=== PATIENT | female | born 1970 | race Caucasian/White ===

== ENCOUNTER → 2017-11-17 | Day surgery (SDC) | payer OTHER ==
--- NOTE | 2017-11-16 16:42 | History & Physical Pre-Op ---
General Information and HPI History of Present Illness: Chantal is a 47-year-old female with a long-standing and worsening complaint of pain to both the left and right heels. The patient also complains of painful neuromas left and right foot. The patient has undergone an extended course of conservative care, including shoe gear and activity modification, rest, immobilization course of NSAIDs. None of this is yielded her any significant relief. The patient presents today for preoperative surgical consultation. Office from Tommie Brunner DPM. Allergies/Medications Allergies: Coded Allergies: No Known Allergies (11/11/17) Home Med list Atorvastatin Calcium (Lipitor) 10 MG TABLET 1 TAB PO EOD CHOLESTEROL ( Reported) Biotin 5,000 MCG TAB.SUBL 1 TAB PO DAILY SUPPLEMENT (Reported) Bupropion HCl (Bupropion XL) 300 MG TAB.ER.24H 1 TAB PO QAM MENTAL HEALTH/ SMOKING CESSATIO (Reported) Cholecalciferol (Vitamin D3) (Vitamin D3) 10,000 UNIT CAPSULE 1 CAP PO DAILY SUPPLEMENT (Reported) Cyanocobalamin (Vitamin B-12) 1,000 MCG TABLET 1 TAB PO DAILY SUPPLEMENT ( Reported) Levothyroxine Sodium (Levo-T) 125 MCG TABLET 1 TAB PO DAILY THYROID (Reported ) Meloxicam 15 MG TABLET 1 TAB PO DAILY PRN PAIN/INFLAMMATION (Reported) Milk Thistle 500 MG CAPSULE 4 CAP PO DAILY SUPPLEMENT (Reported) Mometasone Furoate (Nasonex) 50 MCG SPRAY.PUMP 1 SPRAY NASB DAILY PRN ALLERGIES (Reported) Montelukast Sodium 10 MG TABLET 1 TAB PO DAILY ALLERGIES (Reported) Oxycodone HCl/Acetaminophen (Percocet 5-325 MG Tablet) 5 MG-325 MG TABLET 1 TAB PO Q6H PRN PAIN (Reported) [POTASSIUM CHLOR W/IO] 1 CAP PO DAILY SUPPLEMENT (Reported) Venlafaxine HCl (Venlafaxine HCl ER) 75 MG CAP.ER.24H 1 CAP PO DAILY MENTAL HEALTH (Reported) Zinc Picolinate (Unknown Strength) POWDER (Unknown Dose) PO DAILY SUPPLEMENT (Reported) Past History Medical History Respiratory: bronchitis Endocrine: Suzanne's thyroiditis Surgical History Pertinent Surgical History: appendectomy Review of Systems Review of Systems: Review of systems unremarkable except for that noted distally was Exam & Diagnostic Data Last 24 Hrs of Vital Signs/I&O Intake & Output 11/16 1600 11/16 0800 11/16 0000 Intake Total Output Total Balance Patient 170 lb Weight Physical Exam: Lungs clear bilaterally. Heart sounds rate and rhythm regular. Lower extremity physical exam demonstrates intact pedal pulses bilaterally. Pulses dorsalis pedis and posterior tibial arteries are palpable bilaterally. Patient without any sensory motor deficits. Deep tendon reflexes grossly intact. Patient noted estimated pain with palpation of plantar medial aspect of the left and right heels. Patient also noted to have same and pain with palpation to the third interspace left and right feet. Assessment/Plan Assessment/Plan: Painful heel spurs left and right and painful neuromas left and right. A lengthy discussion reviewing both surgical and conservative options was held the patient at bedside and the patient elects to go forward with surgery despite the risks. As Ranked By This Provider Problem List: 1. Plantar fascial fibromatosis Attending MD Review Statement Attending Statement Attending MD Statement: examined this patient
[~2017-11-17] VITALS: Ht 170.2 cm; Wt 77.1 kg
[~2017-11-17] MED LIST: BIOTIN5000 MC1 PO; BUPROPION XL300 M1 PO; LEVO-T125 MCG PO; LIPITOR10 M1 PO; MELOXICAM15 M1 PO; MILK THISTLE500 M1 PO; MONTELUKAST SOD10 M1 PO; NASONEX17 GM NASB; PERCOCET 5-3251 EACH PO; POTASSIUM CHLOR PO; VENLAFAXINE HCL75 M1 PO; VITAMIN B-121000 MC3 PO; VITAMIN D310000 UNI1 PO; ZINC PICOLINATE PO; [UNRECOGNIZED DRUG - OTHER] PO
--- NOTE | 2017-11-17 10:13 | Operative Report ---
Operative/Inv Procedure Report Surgery Date: 11/17/17 Name of Procedure: 1 plantar fasciotomy right foot 2 plantar fasciotomy left foot 3 excision of neuroma right 4 excision of neuroma left foot Pre-Operative Diagnosis: 1 plantar fasciitis right foot 2 plantar fasciitis left foot 3 neuroma right foot 4 neuroma left foot Post-Operative Diagnosis: The same Estimated Blood Loss: scant Surgeon/Solution Mixer: Cori MCRAE,Mikel Brunner DPM Anesthesia: moderate sedation, block Operative/Procedure Note Note: After obtaining informed consent the patient was brought to the operating room and placed on the operating table in the supine position. The patient isn't securely fastened to the operating table utilizing safety belt. After administration of IV sedation, 10 mL of 0.5% Marcaine plain was infiltrated about the patient's bilateral ankles. 2 well-padded ankle tourniquet was placed about the patient's bilateral lower extremities. 2 g of Ancef were delivered intravenously times one dose. Left right feet were then scrubbed prepped and draped in usual aseptic manner. The right lower extremity is elevated to examine to limb, which point the ankle tourniquet inflated 250 mmHg. Attention directed to the plantar medial aspect the left heel, where a 3 cm linear incision was made the junction of the dorsal plantar skin. The dissection was then carried down to the medial margin of the plantar fascia which was released from its origin on the medial tubercle calcaneal tuberosity. A rongeur bone rasp was then utilized to take down the spur. Nipple was then irrigated with cuff Svensson normal sterile saline. The deep tissues reapproximated 3-0 Vicryl and the skin is reapproximated 3-0 nylon. Incision dorsal aspect of the left foot where a 3 cm linear incision was made over the distal second interspace. Dissection was carried down to the subtenons tissues where the digital branches of the neuroma were identified and were freed and dissected proximally where the body of the neuroma was distracted distally and cut proximally. The specimen was then sent for pathologic inspection. The deep intermetatarsal transverse ligament was also resected. The wound was irrigated cuff Svensson normal sterile saline. The deep tissues reprepped with 4-0 Vicryl and the skin edges reapproximated 4-0 nylon. Incision was dressed with Xeroform 4 x 4's Kerlix and Cullen wrap. The tourniquet was then deflated. Next, the left lower extremity is elevated to examine to limb, which point the ankle tourniquet inflated 250 mmHg. Attention directed plantar medial aspect the left heel, where a 3 cm linear incision was made at the junction the dorsal plantar skin. Dissection was then carried down to the medial margin of the plantar fascia which was released from the medial tubercle. The bone spur was then reduced with a rongeur and bone rasp. The wound was irrigated cuff normal sterile saline. The deep tissues reapproximated 3-0 Vicryl skin is reapproximated 3-0 nylon. Attention was then directed to the dorsal foot, where a 3 cm linear incision was made over the distal second interspace. Dissection was then carried down to the digital branches of the neuroma which were freed and the body of the neuroma was distracted distally and cut proximally. The specimen was sent for pathologic inspection. Nipple was irrigated cuff Svensson normal sterile saline. The deep tissues reprepped with 4-0 Vicryl skin is reprepped for nylon. Incision dressed with Xeroform 4 x 4's Kerlix and an Cullen wrap. The patient noted tolerate both procedure and anesthesia well and the patient was transported from the operative room to recovery vital signs stable best assess intact all digits bilateral feet.
== END ==
LOC: STS 00:39
DX: M72.2 Plantar fascial fibromatosis (principal); G57.63 Lesion of plantar nerve, bilateral lower limbs; E06.3 Autoimmune thyroiditis
CPT/HCPCS: 81025; J0690; J2001; J2250